=== PATIENT | female | born 1985 | race Caucasian/White ===

== ENCOUNTER → 2017-05-22 | Outpatient (CLI) | payer MEDICAID ==
[~2017-05-22] MED LIST: BACT800T5 PO; CEPH500C3 PO
== END ==
LOC: HPND 10:33
PROVIDERS: ATTEND Obstetrics & Gynecology
DX: O36.63X0 Maternal care for excessive fetal growth, third trimester, not applicable or unspecified (principal)
CPT/HCPCS: 76816

== ENCOUNTER → 2017-06-12 | Outpatient (CLI) | payer MEDICAID | LOC: HPND 09:50 | PROVIDERS: ATTEND Obstetrics & Gynecology | DX: O36.63X0 Maternal care for excessive fetal growth, third trimester, not applicable or unspecified (principal) | CPT/HCPCS: 76816; 76818 ==

== ENCOUNTER → 2017-06-27 | Outpatient (CLI) | payer MEDICAID ==
[~2017-06-27] MED LIST changes: +HYDR-3583 PO; +IBUP-232 PO; +OXYC1TAB63 PO
== END ==
LOC: HPND 11:23
PROVIDERS: ATTEND Obstetrics & Gynecology
DX: O26.843 Uterine size-date discrepancy, third trimester (principal); O36.63X0 Maternal care for excessive fetal growth, third trimester, not applicable or unspecified; O40.3XX0 Polyhydramnios, third trimester, not applicable or unspecified
CPT/HCPCS: 76816

== ENCOUNTER 2017-06-28 14:35 | Inpatient (IN) | payer MEDICAID ==
[2017-06-28] MEDS: LACTATED RINGER'S 1000 ML INJ 1,000 ML IV ×2 (16:05→21:45)
[2017-06-28 16:46] LABS: AUTOMATED NEUTROPHIL # 12.6 TH/MM3 (1.8-7.7); BASOPHIL % 0.1 % (0.0-2.0); EOSINOPHIL # 0.1 TH/MM3 (0-0.4); EOSINOPHIL % 0.5 % (0.0-4.0); HEMATOCRIT 34.4 % (35.0-46.0); HEMO FLAGS DIFF FINAL; HEMOGLOBIN 11.5 GM/DL (11.6-15.3); LYMPH % 16.1 % (9.0-44.0); LYMPHOCYTE # 2.6 TH/MM3 (1.0-4.8); MEAN CELL VOLUME 90.2 FL (80.0-100.0); MEAN CORPUSCULAR HGB CONC 33.3 % (32.0-36.0); MEAN PLATELET VOLUME 7.4 FL (7.0-11.0); MONO % 5.5 % (0.0-8.0); MONOCYTE # 0.9 TH/MM3 (0-0.9); NEUT % 77.8 % (16.0-70.0); PLATELET COUNT 274 TH/MM3 (150-450); RED BLOOD COUNT 3.82 MIL/MM3 (4.00-5.30); WHITE BLOOD COUNT 16.2 TH/MM3 (4.0-11.0)
[2017-06-28 16:49] LABS: BACTERIA, URINE FEW /hpf; BILIRUBIN, URINE NEG (NEG); BLOOD, URINE NEG (NEG); COMMENT (UR) CULT NOT INDICATED; CULTURE IF INDICATED CULT NOT INDICATED; GLUCOSE,URINE NEG (NEG); KETONE, URINE 10 mg/dL (NEG); NITRITE,URINE NEG (NEG); PH, URINE 6.5 (5.0-8.5); SQUAMOUS EPITHELIAL CELL URINE 25 /hpf (0-5); URINE COLOR YELLOW (YELLW/STRAW); URINE LEUKOCYTE ESTERASE MOD (NEG)
[2017-06-28 17:02] LABS: AMPHETAMINE, URINE NEG (NEG); BARBITURATES, URINE NEG (NEG); BENZODIAZEPINE,URINE NEG (NEG); CANNABINOIDS, URINE NEG (NEG); COCAINE, URINE NEG (NEG)
[2017-06-28] MEDS ORDERED: ceFAZolin 2 GM PREMIX 50 ML IV (17:15)
[2017-06-28] MEDS ORDERED: CITRIC ACID-SODIUM CITRATE LIQ 30 ML UDC PO (17:45)
[2017-06-28] MEDS: MORPHINE SULFATE 4 MG/ML INJ IV PUSH (21:45)
[2017-06-28] MEDS: ACETAMINOPHEN 325 MG TAB PO (21:45)
[2017-06-29] MEDS ORDERED: MORPHINE SULFATE PF 5 MG/10 ML VIAL (00:34)
[2017-06-29] MEDS ORDERED: EPIDURAL-DIPHENHYDRAMINE HCL 50 MG CAP PO (01:00)
[2017-06-29] MEDS ORDERED: EPIDURAL-NO SYSTEMIC NARCOTICS (01:00)
[2017-06-29] MEDS ORDERED: EPIDURAL-DO NOT ADMINISTER ANTICOAGULANTS (01:00)
[2017-06-29] MEDS ORDERED: EPIDURAL-NALOXONE HCL 0.4 MG/ML AMP IV PUSH (01:00)
[2017-06-29] MEDS ORDERED: ACETAMINOPHEN 1000 MG/100 ML 100 ML IV ×2 (01:08→08:15)
[2017-06-29 01:55] LABS: BLOOD GAS BASE EXCESS 1.4 mmol/L (-2-2); BLOOD GAS O2 HGB SATURATION 45 % (90-100); CORD BLOOD GAS HCO3 27 mmol/L (21-29); CORD BLOOD GAS PCO2 54 mmHG (34-78); CORD BLOOD GAS PH 7.32 (7.14-7.42); CORD BLOOD GAS PO2 23 mmHG (3.0-40.0); DRAW SITE CORD BLOOD; STAT YES
[2017-06-29] MEDS: OXYTOCIN 30 UNITS-500ML PREMIX 500 ML (03:17)
[2017-06-29] MEDS ORDERED: KETOROLAC TROMETHAMINE 30 MG/ML (IVP) VIAL (03:21)
[2017-06-29] MEDS: LACTATED RINGER'S 1000 ML INJ 1,000 ML IV (05:00)
[2017-06-29] MEDS: EPIDURAL-DIPHENHYDRAMINE HCL 50 MG/ML VIAL IV PUSH (05:05)
[2017-06-29] MEDS ORDERED: OXYTOCIN 30 UNITS-500ML PREMIX 500 ML IV ×2 (08:15→13:15)
[2017-06-29] MEDS ORDERED: ONDANSETRON ODT 4 MG TAB PO (08:15)
[2017-06-29] MEDS ORDERED: KETOROLAC TROMETHAMINE 60 MG/2 ML (IM) VIAL IM (08:15)
[2017-06-29] MEDS ORDERED: ACETAMINOPHEN 325 MG TAB PO (08:15)
[2017-06-29] MEDS ORDERED: oxyCODONE/ACETAMINOPHEN 5 MG/325 MG TAB PO (08:15)
[2017-06-29] MEDS ORDERED: SODIUM CHLORIDE 0.9% FLUSH 10 ML FLUSH IV FLUSH (09:00)
[2017-06-29] MEDS: KETOROLAC TROMETHAMINE 30 MG/ML (IVP) VIAL IV PUSH (10:32)
[2017-06-29] MEDS: ACETAMINOPHEN 1000 MG/100 ML 100 ML IV ×2 (10:52→18:00)
[2017-06-29] MEDS: ONDANSETRON HCL 4 MG/2 ML VIAL IV (12:00)
[2017-06-29] MEDS: OXYTOCIN 10 UNIT/ML AMP IV (12:00)
[2017-06-29] MEDS: LACTATED RINGER'S 1000 ML INJ 2,000 ML IV (12:00)
[2017-06-29] MEDS: ePHEDrine/NS 25 MG/5 ML SYRINGE IV (12:00)
[2017-06-29] MEDS: DEXAMETHASONE SOD PHOS 4 MG/ML VIAL IV (12:00)
[2017-06-29] MEDS: PHENYLEPH/NS 1000 MCG/10 ML SYR IV (12:00)
[2017-06-29] MEDS ORDERED: LACTATED RINGER'S 1000 ML INJ 1,000 ML IV (13:14)
[2017-06-29] MEDS: oxyCODONE/ACETAMINOPHEN 5 MG/325 MG TAB PO ×2 (17:27→22:37)
[2017-06-29] MEDS: SIMETHICONE 80 MG CHEWABLE TAB PO ×2 (17:27→22:38)
[2017-06-29] MEDS: IBUPROFEN 600 MG TAB PO ×2 (17:28→23:22)
[2017-06-29] MEDS: DOCUSATE SODIUM 50 MG/SENNA 8.6 MG TAB PO (17:28)
[2017-06-29] MEDS: MORPHINE SULFATE 4 MG/ML INJ IV PUSH (18:45)
[2017-06-30] MEDS: oxyCODONE/ACETAMINOPHEN 5 MG/325 MG TAB PO ×5 (02:19→18:35)
[2017-06-30 05:50] LABS: AUTOMATED NEUTROPHIL # 13.5 TH/MM3 (1.8-7.7); BASOPHIL % 0.2 % (0.0-2.0); EOSINOPHIL # 0.1 TH/MM3 (0-0.4); EOSINOPHIL % 0.5 % (0.0-4.0); HEMATOCRIT 23.8 % (35.0-46.0); HEMO FLAGS DIFF FINAL; HEMOGLOBIN 8.1 GM/DL (11.6-15.3); LYMPH % 16.8 % (9.0-44.0); LYMPHOCYTE # 3.1 TH/MM3 (1.0-4.8); MEAN CORPUSCULAR HEMOGLOBIN 30.5 PG (27.0-34.0); MEAN CORPUSCULAR HGB CONC 33.9 % (32.0-36.0); MEAN PLATELET VOLUME 7.3 FL (7.0-11.0); MONOCYTE # 1.4 TH/MM3 (0-0.9); NEUT % 74.5 % (16.0-70.0); PLATELET COUNT 231 TH/MM3 (150-450); RED BLOOD COUNT 2.64 MIL/MM3 (4.00-5.30); WHITE BLOOD COUNT 18.2 TH/MM3 (4.0-11.0)
[2017-06-30] MEDS: SIMETHICONE 80 MG CHEWABLE TAB PO ×2 (06:06→14:51)
[2017-06-30] MEDS: IBUPROFEN 600 MG TAB PO ×3 (06:06→18:35)
[2017-06-30] MEDS: DOCUSATE SODIUM 50 MG/SENNA 8.6 MG TAB PO ×2 (06:06→18:35)
[2017-06-30] MEDS: IRON SUCROSE INJ 200 MG in SODIUM CHLORIDE 0.9% INJ 100 ML IV (12:45)
[2017-06-30] MEDS ORDERED: MEASLES, MUMPS, RUBELLA VACCINE 0.5 ML VIAL SQ (16:00)
[2017-06-30] MEDS: MORPHINE SULFATE 4 MG/ML INJ IV (22:03)
[2017-07-01] MEDS: IBUPROFEN 200 MG TAB PO (01:01)
[2017-07-01] MEDS: ACETAMINOPHEN/HYDROcodone 325 MG/10 MG TAB PO ×4 (01:01→23:24)
[2017-07-01 05:01] LABS: HEMATOCRIT 25.3 % (35.0-46.0); HEMOGLOBIN 8.7 GM/DL (11.6-15.3); MEAN CELL VOLUME 90.5 FL (80.0-100.0); MEAN CORPUSCULAR HEMOGLOBIN 31.1 PG (27.0-34.0); MEAN CORPUSCULAR HGB CONC 34.4 % (32.0-36.0); MEAN PLATELET VOLUME 7.4 FL (7.0-11.0); PLATELET COUNT 254 TH/MM3 (150-450); REVIEW FLAG FINAL; WHITE BLOOD COUNT 16.3 TH/MM3 (4.0-11.0)
[2017-07-01] MEDS: DIPHTH/TETANUS/ACEL PERTUSSIS (BOOSTER) 0.5 ML VIAL/PFS IM (05:13)
[2017-07-01] MEDS: IBUPROFEN 400 MG TAB PO ×4 (05:13→23:24)
[2017-07-01] MEDS: ACETAMINOPHEN/HYDROcodone 325 MG/5 MG TAB PO (15:24)
[2017-07-01] MEDS: MORPHINE SULFATE 4 MG/ML INJ IV (17:26)
[2017-07-01] MEDS: DOCUSATE SODIUM 50 MG/SENNA 8.6 MG TAB PO (19:28)
[2017-07-01] MEDS: SIMETHICONE 80 MG CHEWABLE TAB PO (19:28)
[2017-07-02] MEDS: SIMETHICONE 80 MG CHEWABLE TAB PO (03:28)
[2017-07-02] MEDS: IBUPROFEN 400 MG TAB PO ×3 (03:28→12:26)
[2017-07-02] MEDS: ACETAMINOPHEN/HYDROcodone 325 MG/10 MG TAB PO ×3 (03:28→12:27)
[2017-07-02] MEDS: DOCUSATE SODIUM 50 MG/SENNA 8.6 MG TAB PO (07:36)
[2017-07-02] MEDS: IRON SUCROSE INJ 200 MG in SODIUM CHLORIDE 0.9% INJ 100 ML IV ×2 (09:35→12:35)
[2017-07-02] MEDS: SODIUM CHLORIDE 0.9% FLUSH 10 ML FLUSH IV FLUSH (09:37)
== END 2017-07-02 14:45 | disposition home or self-care (01) | DRG 765 ==
LOC: H2EB 14:35 → H1EA 06-29 03:46 → H2EA 14:58 → H2EB 15:30
PROC: 10D00Z1 Extraction of Products of Conception, Low, Open Approach (ICD-10-PCS; principal; 2017-06-29)
DX: O36.63X0 Maternal care for excessive fetal growth, third trimester, not applicable or unspecified (principal); O40.3XX0 Polyhydramnios, third trimester, not applicable or unspecified; O99.02 Anemia complicating childbirth; Z3A.40 40 weeks gestation of pregnancy; Z37.0 Single live birth; Z23 Encounter for immunization
CPT/HCPCS: 80307; 81001; 82805; 85025; 85027; 86850; 86900; 86901; 88304; 88305; 88307; 90715